=== PATIENT | male | born 1975 | race Caucasian/White ===

== ENCOUNTER → 2017-02-10 | Outpatient (CLI) | payer OTHER ==
[~2017-02-10] MED LIST: AFRIN3 ML; ALDACTONE PO; AUGMENTIN; BENICAR20 MG PO; COREG PO; COREG3.125 MG PO; COZAAR PO; K-DUR20 ME1 PO; LASIX20 MG PO; NEURONTIN PO; NO MEDICATIONS; NUCYNTA50 MG PO; ULTRAM PO
--- NOTE | ~2017-02-10 | MR113 ---
[facility] A Service of [facility] RADIOLOGY TEXT RESULTS PATIENT: ÓSCAR BOWEN LOCATION: [facility] : [birth year] UNIT #: [id number] AGE: [address]: Arthur Rodney MD SEX: M ORDER DR: [id number] [address] [address] [id number] O MR#: [id number] Acc #: [id number] NAME: ÓSCAR BOWEN : 1975 SEX: M STUDY DATE/TIME: 02/10/2017 10:24 UNIT: [facility] ROOM: STUDY DESCRIPTION: MR Lumbar Wo Contrast Attending Physician: Arthur Rdoney M.D. Referring Physician: Arthur Rodney M.D. Ordering Physician: Arthur Rodney M.D. Primary Care Physician: Anna Fisher M.D. MRI CENTER REPORT This report is preliminary unless electronic signature is present. EXAM Lumbar spine MRI without HISTORY Low back pain for 10 years. Right hip and buttock pain. Right lower extremity pain for 5 years. Left sided pain for less than 1 year. Seemingly new possibly surgery. No history of cancer or trauma provided. COMMENT MRI of the lumbar spine was performed without contrast using routine 1.5T wide bore imaging technique. There is a previous study from 10/17/15. There is a new focus of marrow edema in the L1 vertebral body right side anteriorly. It measures up to about 2.3 cm in diameter. It has developed since 2016 exam and is concerning for osseous metastatic disease or myeloma given the interval development and size of the lesion. The amount of edema is considerably more than typically seen due to marrow endplate degenerative change and the pattern of distribution would also not be typical for this process. I would recommend correlation with a whole body bone scan at this time as well as correlation for any clinical evidence of multiple myeloma. CT scan of the L1 vertebral body might also be helpful to characterize the trabecular pattern. Sagittal alignment is normal. The spine is numbered assuming that there is hypoplastic S1-2 intervertebral disc. There is again disc desiccation and mild loss of intervertebral disc height at L5-S1 as noted previously. The conus medullaris terminates at L1-2 and is normal. Evaluation of degenerative disc disease is as follows: At L1-2, there is mild facet degenerative change right greater than left but no canal stenosis or foraminal impingement. [facility] A Service of [facility] RADIOLOGY TEXT RESULTS PATIENT: ÓSCAR BOWEN LOCATION: [facility] : [birth year] UNIT #: [id number] AGE: [address]: Arthur Rodney MD SEX: M ORDER DR: At L2-3, there is mild bilateral facet degenerative change, mild ligamentum flavum thickening and a minimal posterior disc bulge. There is mild central canal stenosis. The patient has a developmentally small lumbar canal which contributes to the canal stenosis. At L3-4, there is fyta-se-nqushurj facet degenerative change bilaterally with ligamentum flavum thickening. There is a very mild concentric disc bulge. Combination of findings superimposed upon a developmentally small canal results in approximally moderate central canal stenosis. There is only mild inferior foraminal narrowing. At L4-5, tscf-dm-[id number] bilateral facet degenerative change. There is mild broad based disc protrusion. Combination of findings superimposed upon the developmentally small canal result in lepb-cc-lmbsevaz central canal stenosis with mass effect on the bilateral latera recesses and mild inferior foraminal narrowing. At L5-S1, redemonstrated is a large right paramedian posterior lateral extrusion filling the right lateral recess. This is present previously as well. It remains contiguous with the disc extending above and below the level of the disc. It measures about 1.9 cm in SI dimension, 1.6 cm AP dimension and 1.6 cm ML dimension. There is a severe mass effect on expected location of at least the right S! root in right lower recess and otherwise approximately moderate canal stenosis. There is mild side foraminal narrowing. There is [id number] severe left side foraminal narrowing. There is moderate facet arthritis and this contributes to the left sided foraminal narrowing. There is also mass effect on the left lateral recess to a lesser extent. On comparison to the previous study, the disc extrusion at L5-S1 is only slightly smaller. IMPRESSION 1. There is a new osseous lesion in the L1 vertebral body that measures up to 2.3 cm in diameter. For reasons discussed above it is concerning for osseous metastatic disease or multiple myeloma and it should be further evaluated at this time. I would recommend correlation with a whole body bone scan as well correlation for clinical evidence of multiple myeloma. The patient might also benefit from a noncontrast CT scan with attention to the L1 vertebral body. 2. There is again a large predominantly right paramedian extrusion at the L5-S1 level. There is severe impingement upon expected location of at least the right S1 root and right lateral recess and approximately moderate canal stenosis. There is also some mass effect on the left lateral recess and there is a left side foraminal impingement. The patient has a developmentally small canal and multiple level canal compromise is detailed in the comment. 1. 1. [facility] A Service of [facility] RADIOLOGY TEXT RESULTS PATIENT: ÓSCAR BOWEN LOCATION: [facility] : [birth year] UNIT #: [id number] AGE: [address]: Arthur Rodney MD SEX: M ORDER DR: Dictated by... Davina Abbott M.D. THIS IS AN ELECTRONICALLY VERIFIED REPORT Davina Abbott M.D. at 02/11/2017 5:58 PM Flora TD: 02/11/2017 11:39 JOB #: [id number] MRI CENTER REPORT Page 1 of 1
== END | disposition home or self-care (01) ==
LOC: SMRI 09:55
DX: M51.26 Other intervertebral disc displacement, lumbar region (principal); M51.36 Other intervertebral disc degeneration, lumbar region; M89.9 Disorder of bone, unspecified; M51.27 Other intervertebral disc displacement, lumbosacral region
CPT/HCPCS: 72148

== ENCOUNTER → 2017-02-17 | Outpatient (CLI) | payer OTHER ==
--- NOTE | ~2017-02-17 | NM8 ---
[facility] A Service of [facility] RADIOLOGY TEXT RESULTS PATIENT: ÓSCAR BOWEN LOCATION: [facility] : [birth year] UNIT #: [id number] AGE: [address]: Arthur Rodnye MD SEX: M ORDER DR: [id number] [facility] [address] [place], [place] [address] [id number] O MR#: [id number] Acc #: [id number] NAME: ÓSCAR BOWEN : 1975 SEX: M STUDY DATE/TIME: 02/17/2017 12:04 UNIT: [facility] ROOM: STUDY DESCRIPTION: UT Bone or Joint Whole Body Attending Physician: Arthur Rodney M.D. Referring Physician: Arthur Rodney M.D. Ordering Physician: Arthur Rodney M.D. Primary Care Physician: Anna Fisher M.D. MEDICAL IMAGING REPORT This report is preliminary unless electronic signature is present EXAM Whole-body bone scan. HISTORY 42-year-old male, history of chronic back pain, injured back, 1-1/2 years ago, lower right-sided pain. New focus of marrow edema L1 vertebral body noted on MRI 02/10/2017. Clinical concern for possible metastatic disease. COMPARISON MRI of the lumbar spine 02/10/2017, and MRI lumbar spine 10/17/2015. FINDINGS Whole-body and selected spot images were performed of the axial and appendicular skeleton following the intravenous administration of 27.4 mCi technetium 99m MDP. Examination demonstrates a focus of increased uptake within the right portion of the L1 vertebral body. This corresponds to the site of marrow edema as noted on recent MRI. Mild increased uptake noted within the maxillary and mandibular region which may be related to underlying dental disease or prior dental surgery. Symmetric uptake noted within the knees. There is also some mild increased uptake in the feet and ankles which is most likely degenerative in nature. No other definite foci of increased uptake is identified. There is a subtle area of increased uptake in the region of the right T6 costovertebral junction. This is of undetermined clinical significance. This is not highly suspicious for a focus of abnormal uptake. Normal uptake within the AC joints. Bilateral renal activity and normal bladder activity noted. IMPRESSION A solitary focus of increased uptake within the L1 vertebral body corresponding to the area of new marrow edema will be seen on recent MRI. This remains concerning for possible osseous metastatic disease but no other definite foci of increased uptake is identified. There is a very subtle focus of increased uptake in the right posterior costovertebral STS. [facility] A Service of [facility] RADIOLOGY TEXT RESULTS PATIENT: ÓSCAR BOWEN LOCATION: [facility] : [birth year] UNIT #: [id number] AGE: [address]: Arthur Rodney MD SEX: M ORDER DR: junction at the T6 level, though again, this is felt to be of doubtful clinical significance, given its relatively low uptake. Uptake within the remainder of the axial and appendicular skeleton is within normal limits. Dictated by... Geneva William M.D. THIS IS AN ELECTRONICALLY VERIFIED REPORT Geneva William M.D. at 02/17/2017 5:15 PM Brooks TD: 02/17/2017 17:01 JOB #: [id number] MEDICAL IMAGING REPORT Page 1 of 1 COPY
[2017-02-17 09:07] LABS: HEMATOCRIT 40.4 % (38.0-50.0); HEMOGLOBIN 14.3 gm/dL (13.0-16.0); MEAN CELL VOLUME 95.1 FL (83-96); MEAN CORPUSCULAR HEMOGLOBIN 33.7 PG (28-34); MEAN CORPUSCULAR HGB CONC 35.4 g/dL (30-36); MEAN PLATELET VOLUME 8.5 FL (6.5-11.5); RED BLOOD COUNT 4.25 X10e (3.90-5.60); RED CELL DISTRIBUTION WIDTH 13.6 % (11.0-15.5); WHITE BLOOD COUNT 7.1 X10e3 (4.0-10.5)
[2017-02-17 10:11] LABS: ALBUMIN SERUM 3.6 g/dL (3.5-5.0); BILIRUBIN,TOTAL 0.3 mg/dL (0.2-2.0); BUN/CREATININE RATIO 13.75; CALCIUM SERUM 8.8 mg/dL (8.4-10.2); CREATININE SERUM 0.8 mg/dL (0.6-1.4); GLOM FILT RATE Estimated 111.8 mL/min (>60); POTASSIUM 3.9 mmol/L (3.5-5.1); PROTEIN TOTAL SERUM 6.6 g/dL (6.0-8.3)
[2017-02-19 17:22] LABS: SPE A1GLOB (PNL) 0.3 g/dL (0.2-0.3); SPE A2GLOB (PNL) 0.8 g/dL (0.5-0.9); SPE ALB (PNL) 3.9 g/dL (3.8-4.8); SPE BETA 1 GLOBULIN 0.4 g/dL (0.4-0.6); SPE BETA 2 GLOBULIN 0.3 g/dL (0.2-0.5); SPE GAMMA (PNL) 1.1 g/dL (0.8-1.7); SPETP (PNL) 6.7 g/dL (6.1-8.1)
== END | disposition home or self-care (01) ==
LOC: CNUC 08:42
PROVIDERS: Neurological Surgery
DX: R93.7 Abnormal findings on diagnostic imaging of other parts of musculoskeletal system (principal); M54.5 Low back pain
CPT/HCPCS: 36415; 78306; 80053; 84165; 85027; A9503